=== PATIENT | female | born 1980 | race Hispanic/Latino ===

== ENCOUNTER → 2024-08-26 | Outpatient (CLI) | payer OTHER ==
--- NOTE | 2024-08-29 09:08 | HMCIMG ---
DIAGNOSTIC MAMMOGRAM WITH TOMOSYNTHESIS, bilateral breast ultrasound. HISTORY: MALIGNANT NEOPLASM UPPER OUTER QUADRANT OF LEFT BREAST COMPARISON: None TECHNIQUE: Bilateral digital diagnostic mammogram was performed. Bilateral breast ultrasound images also were obtained. Tomosynthesis was performed.CAD was performed as well. FINDINGS: Parenchymal density: The breasts are heterogeneously dense, which may obscure small masses. There is asymmetric increased density upper outer quadrant of the left breast compared to the right. There is a MicroMark clip adjacent to to this increased density, 8 cm above and behind the nipple. There are no associated microcalcifications. There is no architectural distortion. Left breast ultrasound images show a poorly defined soft tissue mass, nonspecific. Breast parenchyma appears otherwise unremarkable. There are no other focal areas of increased parenchymal density. There are no pathologic appearing calcifications. There is no evidence of nipple retraction or skin thickening. Bilateral breast ultrasound images are otherwise unremarkable as well. IMPRESSION: 1. Asymmetric density upper outer quadrant left breast, ultrasound demonstrates a poorly defined soft tissue mass in this area, the MicroMark clip is on the superior margin of the parenchymal abnormality. 2. The clip is approximately 8 cm from the nipple in the upper outer quadrant. 3. Mammogram with tomographic technique and bilateral breast ultrasound images are otherwise unremarkable. The patient was entered into a reminder system with a target due date for their next mammogram. BI-RADS CATEGORY 5: HIGHLY SUGGESTIVE OF MALIGNANCY Recommend monthly self breast exam as well as annual clinical examination. A negative x-ray should not delay biopsy if a dominant or clinically suspicious mass is present, since 8-10% of cancers are not identified by mammography. Dense breasts particularly, may obscure an underlying neoplasm. Some of these may be detected clinically and therefore, clinical examination is an essential part of breast evaluation.
== END | disposition home or self-care (01) ==
LOC: RAH 12:51
PROVIDERS: ATTEND Surgery Surgical Oncology
DX: N63.21 Unspecified lump in the left breast, upper outer quadrant (principal); R92.333 Mammographic heterogeneous density, bilateral breasts; N64.89 Other specified disorders of breast; C50.412 Malignant neoplasm of upper-outer quadrant of left female breast
CPT/HCPCS: 76641; 77062; 77066